=== PATIENT | male | born 1975 | race Caucasian/White ===

== ENCOUNTER 2017-05-19 12:53 | Inpatient (IN) | payer BC, OTHER ==
[~2017-05-19] VITALS: Ht 188 cm; Wt 88.5 kg
--- NOTE | 2017-05-19 22:15 | NUR ---
Pre-Assessment: Pt seen in intake office. Pt reported using Heroin, Xanax, and occasional Methamphetamines. Pt noted with moderate intoxication. Pt stated he has previous adverse reaction to Subutex, primary MD, Dr. Izquierdo made aware. Pt stated that he is here for detox. BP: 139/95, HR:94, T:97.8, RR:18 SpO2: 98%, Pain: 4/10. Explained rules and regulations of the unit. Pt verbalized understanding. Will further assess pt on the unit.
[2017-05-19 22:30] VITALS: BP 139/95
--- NOTE | 2017-05-19 22:35 | NUR ---
Admission Note: Pt admitted to [facility] at 2228. Pt is a 42M, AOx4 without s/s of acute distress noted. Height 62, Weight 195 lbs. Pt noted with adverse reaction to Subutex. Pt reports feelings of severe nausea when taking Subutex and refuses to receive it on the unit. Pt has a Primary Care Physician: Ashu Nazario Pt to be admitted under the care of Dr. Izquierdo. Pt reported with current substance use: 1. Heroin Pt uses 1.5-2g via smoking daily for the past 35 years. Pt last used around 2g Heroin 6 hours prior to admission. Pt stated that he used to take Heroin intravenously but started smoking he couldnt find any more veins. 2. Xanax Pt uses 3-4mg PO daily for the past 6 months. Pt last used 4mg of Xanax on 05/17/17. 3. Methamphetamines Pt uses an unknown amount of Methamphetamines occasionally. Pt stated that he doesnt remember how much he uses but only takes them whenever available. COWS 7 and CIWA 8 upon assessment. Vital signs taken from intake office: BP: 139/95, HR:94, T:97.8, RR:18 SpO2: 98%, Pain: 4/10. Pt noted with crackles on upper lobes during auscultation although breathing was even and unlabored. Pt reports generalized body pain but mostly focused on R upper leg r/t previous IO access. Bowel sounds were hypoactive x4 quadrants. Pt stated he follows a regular diet home but has decreased appetite. Pt noted with multiple scabs on R arm, L shoulder, and R upper leg r/t IO access. No bleeding or exudates noted. Pictures taken and placed on chart. Pt reported that he was recently in [facility] ER for an opiate overdose 3 days ago (05/16/17). Pt reported tolerating smoking Heroin but he had a friend that gave him IV access on his neck. Pt overdosed from IV Heroin and was rushed to [facility]. Pt reported "flatlining" asystole during the incident and was resuscitated. Due to lack of veins, an IO access was inserted on his R tibia. After pt regained consciousness, pt left AMA with the IO access still intact. On 05/18/17, pt went to [facility] to get the IO access removed. Pt stated that while at the ER, he received report that he might have a left lung cavity. He also stated that he might also have kidney stones. Pt did not bring any discharge paperwork or medical records with him from the admission. Pt stated that he has a history of benzodiazepine withdrawal-induced seizure 4 years ago. Pt stated he also has mild hypertension as HTN runs in his family. Pt denies any suicidal ideation at this time. Pt stated that he was previously admitted to [facility] in [place] in 2010. Pt has also been sent to half-way for possession of controlled substances. Most recent half-way time was 1 year ago which lasted for 3 days. Pt did not bring any home medications but stated that he is currently taking 500mg Keflex BID for infection r/t IO access. Pt refused PNA and Flu vaccines. Pt stated that he might get sick if he received the vaccines. Educated pt about current plan of care and verbalized support for pt. Encouraged pt to verbalize feelings. Bed in lowest position. Side rails up x2. Bed padded for safety. All needs attended and met. Call light functioning and within reach. Will continue to monitor. Addendum: 05/20/17 at 0414 by MADDY MILLER RN Correction: Pt has been using Heroin since 34 years old (Not for 35 years).
[2017-05-19 22:47] LABS: *AMPHETAMINE, URINE POSITIVE (NEGATIVE); *BARBITURATE, URINE NEGATIVE (NEGATIVE); *CANNABINOID, URINE NEGATIVE (NEGATIVE); *COCCAINE, URINE NEGATIVE (NEGATIVE); *OPIATE, URINE POSITIVE (NEGATIVE); *PHENCYCLIDINE SCREEN,URINE NEGATIVE (NEGATIVE)
[2017-05-19] MEDS ORDERED: MIRALAX 17 GM POWD.PACK PO PRN (23:45)
[2017-05-19] MEDS ORDERED: CLONIDINE HCL 0.1 MG TABLET PO PRN (23:45)
[2017-05-19] MEDS ORDERED: LORAZEPAM 2 MG/1 ML VIAL IM PRN (23:45)
[2017-05-19] MEDS ORDERED: NICOTINE 14 MG/24HR PATCH TD PRN (23:45)
[2017-05-19] MEDS ORDERED: LORAZEPAM 1 MG TABLET PO PRN ×2 (23:45)
[2017-05-19] MEDS ORDERED: LOPERAMIDE HCL 2 MG CAPSULE PO PRN ×2 (23:45)
[2017-05-19] MEDS ORDERED: ONDANSETRON ODT 4 MG TAB.RAPDIS SL PRN (23:45)
[2017-05-19] MEDS ORDERED: diphenhydrAMINE 50 MG CAPSULE PO PRN (23:45)
[2017-05-19] MEDS ORDERED: KETOROLAC TROMETHAMINE 30 MG INJ IM PRN (23:45)
[2017-05-19] MEDS ORDERED: METHOCARBAMOL 750 MG TABLET PO PRN (23:45)
[2017-05-19] MEDS ORDERED: HYDROXYZINE PAMOATE 25 MG CAPSULE PO PRN (23:45)
[2017-05-19] MEDS ORDERED: DICYCLOMINE HCL 20 MG TABLET PO PRN (23:45)
[2017-05-19] MEDS ORDERED: ONDANSETRON 4 MG/2 ML VIAL IM PRN (23:45)
[2017-05-19] MEDS ORDERED: IBUPROFEN 600 MG TABLET PO PRN (23:45)
[2017-05-19] MEDS ORDERED: MAG HYDROX/AL HYDROX/SIMETH 30 ML LIQUID UDC PO PRN (23:45)
[2017-05-20] VITALS: BP 115/73
--- NOTE | 2017-05-20 | NUR ---
MD and Tax Technician Communication: Clarified with Dr. Izquierdo about pt transfer to [place] to r/o TB in negative pressure isolation room. MD clarified to transfer pt whenever possible. Called Tax Technician for contact with [place] admission. Transport [facility] gave ETA of 3-4 hours before transfer can be facilitated. Pt made aware of current plan of care and order for transfer. Pt stated that he doesn't think he has TB and would like to get some sleep. Awaiting contact with [facility].
--- NOTE | 2017-05-20 00:13 | NUR ---
Ativan, Clonidine, and Robaxin PRN: Pt c/o increasing withdrawal symptoms. Pt stated that he is anxious and starting to feel muscle aches. COWS 14 and CIWA 15. PRN 2mg Ativan, 0.1 Clonidine, 750mg Robaxin given as ordered. Will continue to monitor.
[2017-05-20] MEDS ORDERED: METHOCARBAMOL 750 MG TABLET ONE (00:19)
[2017-05-20] MEDS ORDERED: CLONIDINE HCL 0.1 MG TABLET ONE (00:19)
[2017-05-20] MEDS ORDERED: LORAZEPAM 1 MG TABLET ONE (00:20)
[2017-05-20] MEDS ORDERED: CEPH-570 PO (01:03)
--- NOTE | 2017-05-20 01:15 | NUR ---
Ativan, Clonidine, and Robaxin Reassessment: Pt stated that he feels a lot better after taking Ativan. Pt also reports less muscle aches. PRN Ativan, Clonidine, and Robaxin effective.
--- NOTE | 2017-05-20 01:40 | NUR ---
MD and Patient Communication: CXR resulted no acute disease. On-call MD, Dr. Blackwood, made aware of result. MD stated that CXR is not definitive of TB result and to go ahead with transfer. Reclarified pt with transfer order. Pt stated that if he gets transferred to [place], he would leave AMA. Pt stated that he knows about his condition and does not believe that he has TB. Dr. Blackwood made aware of pt refusal to transfer and desire to leave AMA. MD stated to defer transfer until the morning.
[2017-05-20 04:00] VITALS: BP 117/78
--- NOTE | 2017-05-20 07:09 | NUR ---
End of Shift Note: Pt is 42M, admitted for Opiate and Benzodiazepine Dependence on 05/19/17. Pt is full code, on regular diet, and on fall precaution. Pt noted with adverse reaction to Subutex. Pt reports hx of sz, HTN, and anxiety. Pt is currently on droplet isolation precaution for possible TB. Pt pending transfer to [facility] to a negative pressure room. Pt is currently on 5-day Ativan taper to manage withdrawal symptoms. Pt slept for 5 hours. Respirations even and unlabored. Last COWS was 2 and Last CIWA was 4 at 0400. Pt reported increasing withdrawal symptoms during admission. PRN Ativan, Clonidine, and Robaxin were given and were effective. Fall and Sz precautions observed. Bed in lowest position. Side rails up x2. Call light functioning and within reach. All needs attended and met. Will endorse to day shift nurse.
--- NOTE | 2017-05-20 07:10 | NUR ---
Start Of Shift Report received. Pt is a 42 male, admitted for Opiate and Benzodiazepine Dependence on 05/19/17. Pt is full code, regular diet, reports allergies to Subutex and on fall and seizure precaution. Pt reports Hx of seizures, HTN, and anxiety. Pt is currently on droplet isolation precaution for possible TB. Pt pending transfer to [place] to a negative pressure room. Pt is placed on 5-day Ativan taper to manage withdrawal symptoms. Pt has a healing abrasion on his right upper arm, and a scab on his left shoulder, pictures taken and placed in chart. Pts last COWS 2 and Last CIWA 4 taken at 0400. Pt received PRN Ativan, Clonidine, and Robaxin and were effective. Fluids encouraged to help facilitate detox process, all safety measures in place, Bed in lowest position. Side rails up x2. Call light functioning and within reach. All needs attended and met. Will continue to monitor and provide support.
[2017-05-20 08:00] VITALS: BP 129/86
[2017-05-20] MEDS ORDERED: TUBERCULIN,PURIF.PROT.DERIV. 5 TU/0.1 ML TEST ID ONE (09:00)
[2017-05-20] MEDS ORDERED: GABAPENTIN 300 MG CAPSULE PO SCH (09:00)
[2017-05-20] MEDS ORDERED: CEPHALEXIN MONOHYDRATE 500 MG CAPSULE PO SCH (09:00)
[2017-05-20] MEDS ORDERED: LORAZEPAM 1 MG TABLET PO SCH (09:00)
--- NOTE | 2017-05-20 09:40 | NUR ---
Medication withheld Pt did not received his morning dose of Ativan 2mg, d/t being too sedated, contacted notified and is aware no new orders given, will continue to monitor.
--- NOTE | 2017-05-20 10:45 | NUR ---
COMMUNICATION WITH JEFFERSON ADMIN Called [facility] nursing administration and gave report to Linda. Face sheet was faxed. Notified Dr. Blackwood to speak with Dr. Sommer for transfer of patient to rule out TB. Pt to be transferred to Emergency Department. Primary nurse to give [id number] report.
--- NOTE | 2017-05-20 11:13 | NUR ---
[facility] Called and spoke with Cornelia from med response, all pertinent information provided, ETA is 15-20 minutes. Trip number is #[id number]. educated patient about transfer, pt complies. Addendum: 05/20/17 at 1151 by HASMUKH SCHUMACHER RN [id number]
--- NOTE | 2017-05-20 11:15 | NUR ---
Report given Contacted [place] ED department and gave report to RODRIGO ANNE, all pertinent information given. will continue to monitor Pt until transfer.
--- NOTE | 2017-05-20 12:35 | NUR ---
PATIENT TRANSFERRED Patient transferred by ambulance with med response. Primary nurse gave report to EMT. All patient belongings and discharge packet given. Pt aware of situation and stated "if I wait in the ER for more than 15 minutes, I am going to walk out." Pt educated on risks of leaving AMA. V/S stable. Pt is being transported down accompanied by ANESTHESIOLOGIST AND CRITICAL CARE. MD aware of transport at this time.
[2017-05-21] MEDS ORDERED: LORAZEPAM 1 MG TABLET PO SCH (09:00)
[2017-05-21] MEDS ORDERED: CEPH-570 PO (11:58)
[2017-05-22] MEDS ORDERED: LORAZEPAM 1 MG TABLET PO SCH (09:00)
[2017-05-23] MEDS ORDERED: LORAZEPAM 1 MG TABLET PO SCH (09:00)
[2017-05-24] MEDS ORDERED: LORAZEPAM 1 MG TABLET PO SCH (09:00)
== END 2017-05-20 12:35 | disposition short-term general hospital (02) | DRG 897 ==
LOC: SRC 21:08
PROVIDERS: ADMIT Internal Medicine; ATTEND Internal Medicine
PROC: HZ2ZZZZ Detoxification Services for Substance Abuse Treatment (ICD-10-PCS; principal; 2017-05-19)
DX: F11.229 Opioid dependence with intoxication, unspecified (principal); Z86.74 Personal history of sudden cardiac arrest; R17 Unspecified jaundice; F15.10 Other stimulant abuse, uncomplicated; Z91.89 Other specified personal risk factors, not elsewhere classified; F17.210 Nicotine dependence, cigarettes, uncomplicated; R05 Cough; F41.9 Anxiety disorder, unspecified; F13.230 Sedative, hypnotic or anxiolytic dependence with withdrawal, uncomplicated; R91.8 Other nonspecific abnormal finding of lung field
CPT/HCPCS: 71010; 80307; 80324; 80346; 80361; A4663

== ENCOUNTER 2017-05-20 20:43 | Inpatient (IN) | payer BC, OTHER ==
[~2017-05-20] VITALS: Ht 188 cm; Wt 88.5 kg
[~2017-05-20 20:43] MED LIST: CEPH-570 PO
[2017-05-21] VITALS (7 sets, daily range): BP systolic 115–149; BP diastolic 69–95
--- NOTE | 2017-05-21 00:45 | NUR ---
Pre-Admission Patient was seen in intake office. Patient is noted to moderately intoxicated but stable at this time to continue with admission assessment. V/S noted as: 146/95, 96, 20, 97.9, 98%, 0/10. Policies on medication disposal explained and understood by patient. Will continue with admission process on unit.
--- NOTE | 2017-05-21 01:30 | NUR ---
Admission Patient is a 42 year old male from [facility], readmitted to [facility] to receive treatment for his Opiate and Benzo Dependence. Patient was escorted on to unit by male AIR TRAFFIC CONTROL OPERATOR where body check was rendered. Skin check rendered by CN with Skin noted with Left shoulder open scab, Right forearm large dry scab, and Right lower leg S/P IO site. Patient noted multiple scattered track cardona due to substance use. Patient was able to provide Urine drug screen upon arrival to unit. Patient verbalizes allergies to Buprenorphine and reports reaction of severe nausea and Shortness of breath. Patient is alert and oriented x4, noted to be very restless, verbalizing increased anxiety and agitation. Height noted as 62 and weight noted as 195lbs. Patient is ambulatory with no assistance needed. Breathing is even and non labored. Patient is noted with Crackles in right upper lobe and left upper lobe. No Shortness of Breath noted. No Cough noted. BUE and BLE noted to be WNL with no edema noted. Bowel sounds noted to be hypoactive in all 4 quadrants. Patient verbalizes of following a Regular diet. He wishes to be full code. Patient verbalizes past medical history as HTN, Anxiety, history of seizures due to Benzo withdrawal, history of Overdose 4 days prior to admission. Patient reported of recent admission to [facility] ER due to Overdose where IO access was placed to Right lower leg due to lack of IV access. Patient left [facility] ER AMA with IO site still intact. Patient then admitted to [facility] ER for removal of IO site. Patient was previous admitted on 05/20/17 to [facility]. Upon admission patient verbalized of previous X-ray of Cavity on left lung. Patient was placed on Isolation and transferred to [facility] for further evaluation. Upon readmission to [facility] 05/20/17, patient left AMA. Patient did not bring any home medications but stated that he is currently taking Keflex 500mg BID for infection R/T IO access. Patient denies any suicidal ideations. He describes his usage as: 1. Heroin, for the past 4 years, 2GM daily via inhalation, with last use prior to admission 05/20/17 using 0.25GM 2. Xanax, for the past 6 months, 4mg daily via PO, with last use noted 05/19/17 3. Methamphetamines, for the past 6 months, unknown amount used occasionally, last use noted 05/19/17. Patient explains "anxiety, nausea, vomiting, diarrhea, stomach cramps, hot and cold sweats, flu-like symptoms." Patient currently lives in [place] with his ex-girlfriend and works as a cable television technician. Admission COWS 7 and CIWA 17. Patient states I used Heroin about 3-4 hours ago but I haven't had a benzo in my system in about 24 hours. All information relayed to Dr. Blackwood with orders to place patient on Droplet Isolation, labs to be drawn, PRN medications available for increased signs and symptoms of withdrawal. Patient made aware of Isolation Precautions and verbalized understanding. All needs attended to promptly. Will continue plan of acre as ordered.
[2017-05-21 01:45] LABS: *AMPHETAMINE, URINE POSITIVE (NEGATIVE); *BARBITURATE, URINE NEGATIVE (NEGATIVE); *CANNABINOID, URINE NEGATIVE (NEGATIVE); *COCCAINE, URINE NEGATIVE (NEGATIVE); *OPIATE, URINE POSITIVE (NEGATIVE); *PHENCYCLIDINE SCREEN,URINE NEGATIVE (NEGATIVE)
[2017-05-21] MEDS ORDERED: LORAZEPAM 1 MG TABLET PO PRN ×2 (01:45)
[2017-05-21] MEDS ORDERED: MAG HYDROX/AL HYDROX/SIMETH 30 ML LIQUID UDC PO PRN (01:45)
[2017-05-21] MEDS ORDERED: LOPERAMIDE HCL 2 MG CAPSULE PO PRN ×2 (01:45)
[2017-05-21] MEDS ORDERED: diphenhydrAMINE 50 MG CAPSULE PO PRN (01:45)
[2017-05-21] MEDS ORDERED: CLONIDINE HCL 0.1 MG TABLET PO PRN (01:45)
[2017-05-21] MEDS ORDERED: LORAZEPAM 2 MG/1 ML VIAL IM PRN (01:45)
[2017-05-21] MEDS ORDERED: DICYCLOMINE HCL 20 MG TABLET PO PRN (01:45)
[2017-05-21] MEDS ORDERED: ONDANSETRON ODT 4 MG TAB.RAPDIS SL PRN (01:45)
[2017-05-21] MEDS ORDERED: METHOCARBAMOL 750 MG TABLET PO PRN (01:45)
[2017-05-21] MEDS ORDERED: MAGNESIUM HYDROXIDE 30 ML LIQUID UDC PO PRN (01:45)
[2017-05-21] MEDS ORDERED: IBUPROFEN 400 MG TABLET PO PRN (01:45)
[2017-05-21] MEDS ORDERED: ACETAMINOPHEN 325 MG TABLET PO PRN (01:45)
[2017-05-21] MEDS ORDERED: HYDROXYZINE PAMOATE 25 MG CAPSULE PO PRN (01:45)
--- NOTE | 2017-05-21 02:00 | NUR ---
PRN Medication Administration Patient verbalizing increased anxiety, agitation, and sensitivity to light. CIWA noted to be 17. PRN Clonidine and Ativan 2mg administered as per ordered. Will continue to monitor.
[2017-05-21] MEDS ORDERED: CLONIDINE HCL 0.1 MG TABLET ONE (02:03)
[2017-05-21] MEDS ORDERED: LORAZEPAM 1 MG TABLET ONE (02:03)
--- NOTE | 2017-05-21 03:00 | NUR ---
PRN Medication Reassessment Patient noted in bed watching TV. Patient verbalizes "I'm slowly falling asleep. The Ativan is helping me start to calm down enough to try and get some sleep." CIWA noted to be 10. PRN Ativan noted to be effective. Will continue to monitor.
[2017-05-21] MEDS ORDERED: NICOTINE 14 MG/24HR PATCH TD PRN (06:45)
[2017-05-21] MEDS ORDERED: KETOROLAC TROMETHAMINE 30 MG INJ IM PRN (06:45)
--- NOTE | 2017-05-21 07:05 | NUR ---
End of Shift Patient is in bed, awake, alert and verbally responsive. Breathing even and non labored. Patient is a 42 year old male admitted on 05/21/17 for Opiate and Benzo Dependence under the care of Dr. Blackwood. Patient was placed on PRN Medications for increased signs and symptoms of disease process. Patient verbalizes allergies to Buprenorphine, wishes to be full code, following a regular diet, placed on fall and seizure precautions. Skin noted with right forearm large dry scab, left shoulder open scab, and right lower leg s/p IO site. Patients past medical history verbalized as Anxiety, HTN, History of seizure d/t benzo withdrawal, history of Overdose 05/16/17. Admission CIWA 17 and COWS 7 patient was given PRN Ativan 2mg. PRN Clonidine administered for agitation with mediations noted to minimize signs and symptoms of withdrawal. Patient was placed on Droplet Isolation precautions upon admission, as well as patio and room restriction until further orders to rule out possible TB. Upon admission patient verbalized understanding and noted to be compliant with orders. Patient was then noted requesting to smoke. Patient was explained of MD orders. Patient then noted to state I was cleared from the other hospital. They told me I did not have TB and allowed me to come back here. I just want to smoke. If I cannot smoke then I will just leave. CN made aware. made aware with no new orders. Patient remains in his room. All needs attended to promptly. Will endorse to continue plan of care as ordered.
--- NOTE | 2017-05-21 07:30 | NUR ---
Start of shift note; Received report from night nurse. Patient is a 42 year old male admitted on 05/21/17 for Opiate/Benzo dependence. Patient to evaluated by MD for treatment orders.Patient reported history of anxiety, HTN, seizures d/t benzo withdrawals. Patient has left shoulder scab and right forearm scab noted, right lower leg s/p IO access site. Patient was placed on isolation precautions, room restrictions and patio restrictions per Dr. Blackwood until further orders to rule out possible TB. Patient is high risk for AMA per endorsement. All safety measures secured. Will continue to monitor patient.
[2017-05-21] MEDS ORDERED: TUBERCULIN,PURIF.PROT.DERIV. 5 TU/0.1 ML TEST ID ONE (08:17)
[2017-05-21] MEDS: FOLIC ACID 1 MG TABLET PO SCH (08:40)
[2017-05-21] MEDS: MULTIVITAMINS,THERAPEUTIC TABLET PO SCH (08:40)
--- NOTE | 2017-05-21 10:30 | NUR ---
MD communication/nurse note; Notified MD regarding patient's refusal to any blood draw. Patient stated "i refuse to have any blood work done, i have been cleared by [facility] i don't understand why they need further testing when i was already cleared to come back here by [facility]". Educated patient regarding infection control and the importance of compliance to treatment. MD ordered AFB sputum cultures to be done by respiratory therapist. MD to evaluate patient during MD rounds. Will closely monitor patient.
--- NOTE | 2017-05-21 10:34 | NUR ---
Respiratory therapist; Respiratory therapist was notified regarding sputum culture that needs to be done. Will continue to monitor patient. Isolation precautions observed.
[2017-05-21] MEDS: LORAZEPAM 1 MG TABLET PO SCH ×4 (10:42→21:30)
--- NOTE | 2017-05-21 11:47 | NUR ---
Respiratory therapist and Radiology staff communication; Md ordered CXR (2 views) to R/O possible right upper lobe cavitary lesion. Radiologist came up on the unit to do the CXR, currently patient is refusing chest Xray, educated patient regarding the importance of compliance to MD orders, patient verbalize understanding. Radiologist will attempt to take CXR again in the afternoon. MD also ordered serial Sputum AFB X3 to be done specifically by respiratory therapist per MD. Respiratory department was notified and reminded of the need for the sputum culture to be done, RT staff agreed to come up and do the culture. Patient was educated regarding the importance of providing sputum for culture, patient verbalized understanding. Will continue to monitor patient.
[2017-05-21] MEDS ORDERED: CEPH-570 PO (11:58)
[2017-05-21] MEDS ORDERED: ALBUTEROL SULFATE 2.5 MG/3 ML NEBU NEB PRN (12:15)
[2017-05-21] MEDS ORDERED: SODIUM CHLORIDE 3% FOR INHALATION 15 ML NEBU IH ONE (12:15)
--- NOTE | 2017-05-21 13:33 | NUR ---
Sputum Culture: Sputum culture was collected by respiratory therapist as per MD order. Patient is AOX4,all safety measures secured.
[2017-05-21] MEDS ORDERED: DICYCLOMINE HCL 10 MG CAPSULE PO PRN (15:26)
[2017-05-21] MEDS: CEPHALEXIN MONOHYDRATE 500 MG CAPSULE PO SCH (16:24)
--- NOTE | 2017-05-21 17:04 | NUR ---
Chest XR result; Chest XR results noted. The lungs are clear. No focal opacification is seen. There is no pleural effusion or pneumothorax. The cardiomediastinal silhouette is unremarkable. The osseous structures are unremarkable. MD notified.
--- NOTE | 2017-05-21 17:58 | NUR ---
End of shift note; Patient is AOX4. Patient is a 42 year old male admitted on 05/21/17 for Opiate/Benzo dependence. Patient to evaluated by MD for treatment orders.Patient reported history of anxiety, HTN, seizures d/t benzo withdrawals. Patient has left shoulder scab and right forearm scab noted, right lower leg s/p IO access site. Patient was placed on isolation precautions, room restrictions and patio restrictions per Dr. Blackwood. Patient refused blood draw, MD was notified. Sputum culture was done with pending results, CXR resulted and was relayed to MD. Patient's last COWS is 4 and last CIWA is 5 at 1600. Patient remained compliant with medication regime. Isolation precautions observed. All safety measures secured. Met all needs.
--- NOTE | 2017-05-21 19:30 | NUR ---
START OF SHIFT Patient is a 42 year old male admitted on 05/21/17 for Opiate/Benzo dependency. Pt is A/O X 4. PMH of anxiety, HTN, seizures d/t benzo withdrawals. Patient has left shoulder scab and right forearm scab noted, right lower leg s/p IO access site. Allergic to Buprenorphine,on regular diet and full code status.Patient was placed on droplet isolation, room restrictions and patio restrictions per Dr. Blackwood to rule out TB. Patient refused blood draw, MD is aware. Sputum culture was done with pending results, CXR results relayed to MD. Patient's last COWS is 4 and last CIWA is 5 at 1600. Patient is compliant with medication regime. Isolation precautions observed. All safety measures in place per hospital policy,call light within reach,will continue to monitor.
--- NOTE | 2017-05-21 21:30 | NUR ---
MED REFUSAL Pt refused HS dose of Ativan 2 mg PO. notified.
[2017-05-22] VITALS: BP 130/85
[2017-05-22] MEDS ORDERED: LORAZEPAM 1 MG TABLET PO ONE ×2 (00:45→11:30)
--- NOTE | 2017-05-22 00:45 | NUR ---
RN note Ativan one-time Pt requested for his Ativan 2 mg PO scheduled for 2100. He initially refused this scheduled medication. Dr. Blackwood notified. ordered Ativan 2 mg PO one-time. Primary RN to administered medication.
--- NOTE | 2017-05-22 00:48 | NUR ---
ONE TIME DOSE OF ATIVAN 2 MG PO GIVEN ORDERED.
[2017-05-22] MEDS: ONDANSETRON 4 MG/2 ML VIAL IM PRN ×2 (03:48→10:22)
--- NOTE | 2017-05-22 03:48 | NUR ---
PRN ZOFRAN IM GIVEN ORDERED FOR N/V.WILL MONITOR.
[2017-05-22 04:00] VITALS: BP 115/79
--- NOTE | 2017-05-22 04:00 | NUR ---
COWS/CIWA DEFERRED D/T PT BEING ASLEEP.
--- NOTE | 2017-05-22 04:18 | NUR ---
PRN ZOFRAN IS EFFECTIVE.PT IS RESTING IN BED WITH EYES CLOSED,APPEARS TO BE FAST ASLEEP.
--- NOTE | 2017-05-22 06:34 | NUR ---
END OF SHIFT Patient is a 42 year old male admitted on 05/21/17 for Opiate/Benzo dependency. Pt is A/O X 4. PMH of anxiety, HTN, seizures d/t benzo withdrawals. Patient has left shoulder scab and right forearm scab noted, right lower leg s/p IO access site. Allergic to Buprenorphine,on regular diet and full code status.Patient was placed on droplet isolation, room restrictions and patio restrictions per Dr. Blackwood to rule out TB. Patient refused blood draw, MD is aware. Sputum culture was done with pending results, CXR result negative, relayed to MD. Patient's last COWS is 4 and last CIWA is 5 at 1600.PRN Zofran was given for N/V x 1 and was effective.Pt slept 8 hrs,fluid intake was 1000 mls,voided x 2. Patient is compliant with medication regime. Isolation precautions observed. All safety measures in place per hospital policy,call light within reach,will continue to monitor.
[2017-05-22 08:00] VITALS: BP 120/69
--- NOTE | 2017-05-22 08:00 | NUR ---
START OF SHIFT NOTE 42 year old male, admitted for Heroin, Xanax and meth substance use disorder. On airborne isolation for rule out TB. History of anxiety, HTN, history of seizure due to benzo withdrawal, history of OD 4 days prior to admission on 05/16/17. Allergy to Subutex. Full code. Fall and seizure precautions. Received report from night RN. Pt had emesis x 1 last night, received Zofran IM at 0400. 0800 nursing rounds, Pt refusing blood draw, RN will notify MD. Bed in low position and locked, side rails up x 2, call gaona within reach. Will continue to monitor.
[2017-05-22] MEDS: MULTIVITAMINS,THERAPEUTIC TABLET PO SCH ×3 (08:48→09:29)
[2017-05-22] MEDS: CEPHALEXIN MONOHYDRATE 500 MG CAPSULE PO SCH ×4 (08:48→17:50)
[2017-05-22] MEDS: LORAZEPAM 1 MG TABLET PO SCH ×4 (08:49→14:30)
[2017-05-22] MEDS: FOLIC ACID 1 MG TABLET PO SCH ×3 (08:49→09:29)
--- NOTE | 2017-05-22 09:37 | NUR ---
EMESIS Pt given am meds. Approximately one minute later Pt had emesis. Unable to administer IM Zofran until 1000. RN notified MD of emesis and unable to retain PO medication.
--- NOTE | 2017-05-22 10:22 | NUR ---
PRN MEDICATION ADMINISTRATION Zofran IM given due to emesis x 1. Will reassess.
--- NOTE | 2017-05-22 10:52 | NUR ---
PRN MEDICATION REASSESSMENT Pt denies further emesis. States nausea improved. Able to retain small amount of ice chips and fluid.
[2017-05-22] MEDS ORDERED: IV NS 1000 ML 1,000 ML IV PRN (11:30)
[2017-05-22] MEDS ORDERED: ONDANSETRON 4 MG/2 ML VIAL IV PRN (11:30)
[2017-05-22 12:30] VITALS: BP 128/65
--- NOTE | 2017-05-22 12:53 | NUR ---
COWS AND CIWA DEFERRED Pt sleeping. COWS AND CIWA deferred at this time. Pt with regular and unlabored respirations. RN had asked Pt for sputum sample one hour prior but pt has not yet provided sample. RN will follow up with obtaining sample.
--- NOTE | 2017-05-22 14:17 | NUR ---
UNABLE TO PLACE IV OCCUPATIONAL THERAPY PROGRAM DIRECTOR unable to place IV access. Also, pt attempted to give sputum sample but had emesis when trying to cough. Voice message left for Dr. Izquierdo regarding IV access and sputum specimen.
[2017-05-22 17:00] VITALS: BP 130/94
--- NOTE | 2017-05-22 17:30 | NUR ---
ONE TIME ATIVAN ORDER Pt refused 1500 dose of Ativan. At 1730, pt stating he would take the Ativan now. RN spoke to crusher plant operator. crusher plant operator spoke with Dr. Izquierdo and stated he would place a one time Ativan order for the patient. RN will administer as ordered.
--- NOTE | 2017-05-22 18:06 | NUR ---
PT LEAVING AMA Pt stating he would go smoke whether he was allowed or not. RN explained to Pt that he was not allowed to smoke because he was on isolation. Pt insisted he was going to smoke anyway. RN notified relief charge nurse. PCT Building Certifier Doyle spoke with patient. Pt told Doyle that he did not understand why he was on isolation as the last hospital he was at said he did not have TB. Doyle asked patient to give RN a moment to clarify isolation reason with MD. RN spoke with health data administrator who informed RN that per Dr. Izquierdo pt was on isolation as his last CXR showed a mass that could be TB. RN and Doyle spoke with patient and RN explained that last CXR showed a mass that could be TB and this was the reason for continued isolation. Patient stated he was going to leave that hospital. health data administrator notified. health data administrator spoke with Pt as well but patient continued to state he wanted to leave AMA. AMA form and Community Resources form signed by patient. Community Resources form given to patient and placed in belongings bag. Pt educated about the risks and consequences of leaving AMA, pt verbalized understanding but still requested to leave. Multiple staff members spoke with pt without any success. VS WNL. Pt denies suicidal/homicidal ideations. Dr. Izquierdo notified. All belongings returned to pt. Pt left facility at 1805 on 05/22/17. Pt escorted by PCT and was given and wearing N95 mask as he was leaving the unit and building.
[2017-05-23] MEDS ORDERED: LORAZEPAM 1 MG TABLET PO SCH (09:00)
[2017-05-24] MEDS ORDERED: LORAZEPAM 1 MG TABLET PO SCH (09:00)
[2017-05-25] MEDS ORDERED: LORAZEPAM 1 MG TABLET PO SCH (09:00)
== END 2017-05-22 18:05 | disposition left against medical advice (07) | DRG 894 ==
LOC: SRC 05-21 00:03
PROVIDERS: ADMIT Internal Medicine; ATTEND Internal Medicine
PROC: HZ2ZZZZ Detoxification Services for Substance Abuse Treatment (ICD-10-PCS; principal; 2017-05-21)
DX: F11.23 Opioid dependence with withdrawal (principal); F15.10 Other stimulant abuse, uncomplicated; F13.230 Sedative, hypnotic or anxiolytic dependence with withdrawal, uncomplicated; R17 Unspecified jaundice; R05 Cough; F17.210 Nicotine dependence, cigarettes, uncomplicated; Z86.74 Personal history of sudden cardiac arrest; F41.9 Anxiety disorder, unspecified; Z91.89 Other specified personal risk factors, not elsewhere classified; F15.90 Other stimulant use, unspecified, uncomplicated
CPT/HCPCS: 71020; 80307; 80324; 80346; 80361; 86580; 94640; 94664; A4663; J1885; J2405; J7030

== ENCOUNTER 2017-09-03 18:41 | Inpatient (IN) | payer BC, OTHER ==
[~2017-09-03] VITALS: Ht 188 cm; Wt 95.3 kg
[2017-09-03] MEDS ORDERED: MAG HYDROX/AL HYDROX/SIMETH 30 ML LIQUID UDC PO PRN (21:30)
[2017-09-03] MEDS ORDERED: ONDANSETRON ODT 4 MG TAB.RAPDIS SL PRN (21:30)
[2017-09-03] MEDS ORDERED: MIRALAX 17 GM POWD.PACK PO PRN (21:30)
[2017-09-03] MEDS ORDERED: CLONIDINE HCL 0.1 MG TABLET PO PRN (21:30)
[2017-09-03] MEDS ORDERED: ONDANSETRON 4 MG/2 ML VIAL IM PRN (21:30)
[2017-09-03] MEDS ORDERED: MAGNESIUM HYDROXIDE 30 ML LIQUID UDC PO PRN (21:30)
[2017-09-03] MEDS ORDERED: ACETAMINOPHEN 325 MG TABLET PO PRN (21:30)
[2017-09-03] MEDS ORDERED: DICYCLOMINE HCL 20 MG TABLET PO PRN (21:30)
[2017-09-03] MEDS ORDERED: BUPRENORPHINE HCL 2 MG TAB.SUBL SL PRN (21:30)
[2017-09-03] MEDS ORDERED: LORAZEPAM 2 MG/1 ML VIAL IM PRN (21:30)
[2017-09-03] MEDS ORDERED: diphenhydrAMINE 50 MG CAPSULE PO PRN (21:30)
[2017-09-03] MEDS ORDERED: IBUPROFEN 600 MG TABLET PO PRN (21:30)
[2017-09-03] MEDS ORDERED: LOPERAMIDE HCL 2 MG CAPSULE PO PRN ×2 (21:30)
[2017-09-03] MEDS ORDERED: NICOTINE 14 MG/24HR PATCH TD PRN (22:00)
[2017-09-03] MEDS ORDERED: NICOTINE POLACRILEX 4 MG GUM-PK OF TEN BC PRN (22:00)
--- NOTE | 2017-09-03 22:00 | NUR ---
INTAKE NOTE Pre-assessment completed in intake office. Patient is a 42 year old male presented for Benzodiazepines (Xanax PO) and Opioid (Heroine smoke) dependence. Patient reports NKA. Patient is ambulatory, A&Ox4. VS: BP 162/91, HR 83, T 98.3, SPO2 97%, pain level "0/10". COWS 16. The patient presented with anxiety, agitation, nervousness, tremors, sweating, stomach pain, restlessness, and fatigue. Patient denies SI/HI. Upon initial assessment respirations unlabored and even. Patient denies SOB and chest pain. Patient educated on the admission process. Will continue with the admission when patient coming on the unit.
[2017-09-03 22:43] VITALS: BP 162/91
--- NOTE | 2017-09-03 22:43 | NUR ---
ADMISSION NOTE New patient is a 42 year old male admitted to [facility] on 09/03/2017 @2243 for Benzodiazepines and Opioid Dependence. Patient is ambulatory. Height: 62 inches; Weigh by standing scale: 210 lbs. Patient is alert and oriented x4. Patient reports NKA, is on Regular Diet, Full Code, is on Fall and Seizures Precautions. PMH: HTN, Anxiety, Depression, Seizures History, Overdose History in 04/2017. UDS test provided. Patient refused Blood Labs drawn. Doctor Virgil Izquierdo MD aware. Patient reports "has been recently in prison : 07/27/2017 to 08/25/2017". MRSA collected from nares and sent to Lab. COWS 16, CIWA 13: Patient presented with anxiety, agitation, nervousness, tremors, sweating, restlessness, Body aches, stomach cramps, and fatigue.VS: BP 162/91, HR 83, T 98.3, SPO2 97%, pain level "0/10". Respirations even and unlabored. Lung Sounds are clear throughout. Patient denies SOB, cough, and chest pain. Bowel sounds active in all four quadrants. Skin is warm and dry to touch. Right knee open abscess. Picture taken and placed in chart. BUE and BLE dry scabs noted. Patient has multiple scattered track cardona r/t to substance use. Patient was previous admitted to [facility] x2. Patient did not bring home medications. Patient denies SI/HI now. Substance Use History: 1. "Heroin smoking 1.5 grams every day during last 5 months. Last used 1,5 grams on 09/03/2017 @1900". 2. "Xanax PO 2 mg occasionally for the past 5 months. Last use 2 mg on 09/03/2017 @1900". Patient oriented to his room, Nurse Call Light, and Serenity Floor. Encouraged fluids as tolerated. Encouraged to attend activities groups. All needs met. Safety measures on place. Call light within reach, bed in lowest position and locked, padded rails up bilaterally rails up bilaterally. Will continue to monitor closely. Addendum: 09/04/17 at 0306 by BETTY SORTO RN Patient reports tobacco smoking every day 1/2 pack, or 10 cigarettes. Education s for smoking cessation provided to patient.
[2017-09-03] MEDS ORDERED: LORAZEPAM 1 MG TABLET PO SCH (23:00)
[2017-09-03 23:03] LABS: *AMPHETAMINE, URINE POSITIVE (NEGATIVE); *BARBITURATE, URINE NEGATIVE (NEGATIVE); *CANNABINOID, URINE NEGATIVE (NEGATIVE); *COCCAINE, URINE NEGATIVE (NEGATIVE); *OPIATE, URINE POSITIVE (NEGATIVE); *PHENCYCLIDINE SCREEN,URINE NEGATIVE (NEGATIVE)
[2017-09-04] VITALS: BP 134/91
[2017-09-04 04:00] VITALS: BP 141/83
--- NOTE | 2017-09-04 07:30 | NUR ---
START OF SHIFT PATIENT IS A 42 YR OLD MALE ADMITTED LAST NIGHT 09/03/17 TO [facility] FOR WITHDRAWAL FROM HEROIN. PATIENT IS IN BED ASLEEP BREATHING EVEN AND UNLABORED WITH 2 SIDE RAILS UP. PATIENT HAS NOT STARTED A TAPER YET BUT REQUIRED PRN ATIVAN ON PM SHIFT FOR WITHDRAWAL SYMPTOMS. LAST COWS 16 AND CIWA 11, WILL FOLLOW MD PLAN OF CARE
--- NOTE | 2017-09-04 07:35 | NUR ---
END OF SHIFT NOTE: Patient is a 42 year old male admitted on 09/03/2017 for Benzodiazepines (Xanax PO) and Opioid (Heroin smoking) dependence. Patient is on PRN Medications. Patient reports NKA, is on Regular Diet, Full Code, is on Fall and Seizures Precautions. PMH: HTN, Anxiety, Depression, Seizures History, Overdose History in 04/2017. Admission COWS 16, CIWA 11 @2243: Patient presented with anxiety, agitation, nervousness, tremors, sweating, restlessness, body aches, stomach cramps, and fatigue. Ativan 2mg 2 tab PO administrated as ordered. COWS 12, CIWA 9 @0000. Last COWS 13, CIWA 11 @0400. Patient c/o anxiety, agitation, nervousness, nausea, nasal stuffy, stomach cramps, sweating, tremors, and restlessness. VS @0400: T 97.7, BP 141/83, HR 80, RA SPO2 98%, body aches pain level "0/10". Respirations even and unlabored. Patient denies SOB, cough, and chest pain. Skin is warm and dry to touch. Patient's on right knee open abscess , and BUE and BLE dry scabs noted. Patient has multiple scattered track cardona r/t to substance use. Patient denies SI/HI. Patient encouraged to attend activities. Encouraged to increased oral fluids as tolerated. Patient slept 6 hours, intake 1,000 ml, urinated x2. All safety measures in the place: Call light within reach; bed locked and in the lowest position; padded rails up x 2. Patient endorsed to day shift nurse, report given.
[2017-09-04 08:00] VITALS: BP 149/93
[2017-09-04] MEDS ORDERED: TUBERCULIN,PURIF.PROT.DERIV. 5 TU/0.1 ML TEST ID ONE ×2 (09:00→12:45)
[2017-09-04] MEDS: LORAZEPAM 1 MG TABLET PO PRN ×4 (09:22→22:55)
--- NOTE | 2017-09-04 09:22 | NUR ---
PRN ATIVAN ATIVAN 2MG PO GIVEN FOR COWS 15 CIWA 13 WILL CONTINUE TO MONITOR
--- NOTE | 2017-09-04 10:22 | NUR ---
PRN REASSESS PT RESTING IN BED, STATES THAT ATIVAN HELPED HIS ANXIETY COWS 13 CIWA 10 WILL CONTINUE TO MONITOR AND OFFER HELP
[2017-09-04 12:00] VITALS: BP 123/79
[2017-09-04 12:33] LABS: BASOPHILS % (AUTO) 0.2 % (0.0-2.0); EOSINOPHILS # (AUTO) 0.2 K/uL (0.0-0.7); EOSINOPHILS % (AUTO) 2.5 % (0.0-7.0); HEMATOCRIT 28.8 % (36.7-47.1); HEMOGLOBIN 9.2 g/dL (12.5-16.3); LYMPHOCYTES # (AUTO) 1.5 K/uL (20.0-40.0); LYMPHOCYTES % (AUTO) 23.4 % (20.5-51.5); MEAN CORPUSCULAR HEMOGLOBIN 22.9 uug (23.8-33.4); MEAN CORPUSCULAR HGB CONC 32 g/dL (32.5-36.3); MEAN CORPUSCULAR VOLUME 71.7 fL (73.0-96.2); MONOCYTES # (AUTO) 0.7 K/uL (2.0-10.0); MONOCYTES % (AUTO) 10.6 % (0.0-11.0); NEUTROPHILS % (AUTO) 63.3 % (38.5-71.5); PLATELET COUNT (AUTO) 330 K/uL (152-348); RED BLOOD CELL COUNT(AUTO) 4.02 MIL/uL (4.06-5.63); WHITE BLOOD COUNT (AUTO) 6.3 K/uL (3.6-10.2)
[2017-09-04 12:40] LABS: ALANINE AMINOTRANSFERASE 13 U/L (16-63); ALKALINE PHOSPHATASE 77 U/L (50-136); ASPARTATE AMINOTRANSFERASE 18 U/L (15-37); BILIRUBIN,TOTAL 0.3 mg/dL (0.2-1.0); CARBON DIOXIDE 32 mmol/L (21-32); CHLORIDE 105 mmol/L (98-107); CREATININE 0.9 mg/dL (0.6-1.3); ETHANOL < 3 MG/DL (0-0); GLUCOSE 88 mg/dL (74-106); MAGNESIUM 1.9 mg/dL (1.8-2.4); TOTAL PROTEIN, SERUM 6.3 g/dL (6.4-8.2); UREA NITROGEN, BLOOD 9 mg/dL (7-18)
--- NOTE | 2017-09-04 12:45 | NUR ---
PPD PPD PLACED PER MD ORDER PLACED ON RIGHT FORE ARM
--- NOTE | 2017-09-04 12:51 | NUR ---
PRN ATIVAN 1MG PO ATIVAN GIVEN FOR ANXIETY AND CIWA 11 WILL CONTINUE TO REASSESS AND MONITOR
--- NOTE | 2017-09-04 13:50 | NUR ---
REASSESS PRN ATIVAN CIWA 9 PATIENT STATES HE FEELS LESS ANXIOUS AND ATIVAN HAS HELPED WITH HIS WITHDRAWALS. CONTINUE TO MONITOR
[2017-09-04] MEDS: METHOCARBAMOL 750 MG TABLET PO PRN (15:59)
[2017-09-04 16:00] VITALS: BP 126/72
--- NOTE | 2017-09-04 16:00 | NUR ---
PRN MEDS PRN ATIVAN 1MG GIVEN FOR CIWA 9 ROBAXIN 750MG PO AND BENTYL 20 MG PO GIVEN FOR COMPLAINTS OF BODY AND STOMACH PAIN, WILL REASSESS AND MONITOR
--- NOTE | 2017-09-04 17:00 | NUR ---
PRN REASSESS PATIENT STATES HE " FEELS OK BUT NOT READY TO START SUBUTEX YET " ROBAXIN EFFECTIVE FOR BODY ACHES AND ATIVAN EFFECTIVE FOR ANXIETY, CIWA 8, CONTINUE TO MONITOR
[2017-09-04] MEDS ORDERED: BUPRENORPHINE HCL 2 MG TAB.SUBL SL PRN (18:30)
--- NOTE | 2017-09-04 18:44 | NUR ---
END OF SHIFT: PATIENT IS A 42 YR OLD MALE WHO WAS ADMITTED INTO [facility] 09/03/17 FOR WITHDRAWAL FROM HEROIN AND BENZODIAZEPINES. PATIENT HAS SLEPT ON AND OFF MOST OFF THE DAY. PATIENT IS ON PRN MEDS ONLY AT THIS TIME, MEDS GIVEN : ATIVAN 2MG PO X2, ATIVAN 1 MG PO X1, ROBAXIN 750MG PO AND BENTYL 20MG PO. PATIENTS ARMS, HANDS AND LEGS ARE EDEMATOUS AND HE HAS AN ABSCESS ON HIS RIGHT KNEE. MRSA NARES SWAB SENT TO LAB PENDING RESULTS. PPD PLACED ON RIGHT FOREARM. LAST COWS 10 AND CIWA 9 @ 1600.FLUID INTAKE THIS SHIFT 75OML , 2 VOIDS AND [address] MCCONNELL WHEN PATIENT STARTS WITHDRAWALS AND HE WILL START TAPER.
--- NOTE | 2017-09-04 18:44 | NUR ---
START OF SHIFT NOTE Endorsed patient, 23 year old male, assessed in his room. He is resting in the bed. Patient is alert and oriented x4. Patient is sad, with poor eyes contact , and c/o " feelings of sad". Emotional support provided, and patient 's reassuring. Patient denied SI/HI. COWS 12, CIWA 11: Patient presented with anxiety, agitation, nervousness, tremors, sweating, restlessness, fatigue, and stomach pain. Respirations is unlabored and clear. Abdomen is soft. Bowel Sounds active in all four quadrants. Skin is warm, and moist to touch. Patient has abscess on Right Knee, Scabs on Bilateral Upper Extremities, and multiple Scabs on Bilateral Low Extremities noted. Patient denies SI/HI. Encouraged to attend group activities, to increasing oral fluids. Patient is on PRN medications. Patient remains compliant with treatment, medications, and diet regime per day shift nurse report. All safety measures in the place: Call light within reach, bed locked and in the lowest position, padded rails up x 2. Patient endorsed by day shift nurse, report received. Will continue to monitor closely.
[2017-09-04 20:00] VITALS: BP 144/89
--- NOTE | 2017-09-04 22:55 | NUR ---
PRN ATIVAN 2 MG ADMINISTERED FOR CIWA 14: PATIENT NOTED ANXIOUS AND AGITATED. ALL NEEDS MET. WILL REASSESS.
--- NOTE | 2017-09-04 23:55 | NUR ---
RE-ASSESSMENT Patient is sleeping. RR 14. Respirations even and unlabored. PRN Ativan 2 mg PO was effective. All needs met. Safety measures on place. Call light within reach, bed in lowest position and locked, padded rails up bilaterally. Will continue to monitor closely.
[2017-09-05] VITALS: BP 131/70
[2017-09-05 04:00] VITALS: BP 135/82
--- NOTE | 2017-09-05 06:38 | NUR ---
END OF SHIFT NOTE: Patient admitted for Benzodiazepines and Opioid withdrawal . Patient 's sad with poor eye contact. Patient is disheveled. Garbage seen around room. At beginning of the shift COWS =12, CIWA 11 @2000, COWS =14, CIWA=14 @2255: Patient noted anxious and agitated. During the shift, PRN Ativan 2 mg PO administrated for CIWA=14 ,as ordered. Patient presented with anxiety, agitation, nervousness, tremors, sweating, restlessness, body aches, stomach cramps, and fatigue throughout my shift. Ativan 2mg 2 tab PO administrated as ordered. During re-assessment in one hour patient slept, and patient woke up while VS's taken @0000, and used restroom. COWS, CIWA decreased to 9 @0000. Last COWS= 10, CIWA=10 @0400. During coding compliance manager patient c/o anxiety, agitation, nervousness, nasal stuffy, stomach cramps, sweating, tremors, and restlessness. Patient encouraged to attend activities. Encouraged to increased oral fluids as tolerated. Patient slept 7 hours, intake 1,694 ml, urinated x3. All safety measures in the place: Call light within reach; bed locked and in the lowest position; padded rails up x 2. Patient endorsed to day shift nurse, report given.
--- NOTE | 2017-09-05 07:10 | NUR ---
Start of Shift Notes: Received patient in his room. Awake, alert and verbally responsive. Oriented x 4. Patient is seen eating in bed while laying down. Patient was asked to elevated his HOB due to risk for aspiration. Patient states "No, I'm good. Can you just get me more oreo cookies, hersheys, diet coke and a bag of barbecue chips?" Patient was told that breakfast was coming in soon. Patient then stated "I don't want to wait for breakfast, just get me what I asked for." Patient's room was noted to have garbage all around the floor, hoarding food, with dirty linens and dirty clothes thrown on the floor with spilled drinks. Encouraged hygiene, cleanliness and order in his room. Patient is a 42 year old male admitted for BZO and opiate withdrawal who is on PRNs at this time. Educated patient on his current plan of care for the day and his medication regimen. Encouraged oral fluid intake and encouraged group participation to learn new skills to prevent relapse. Will continue to monitor closely.
[2017-09-05 08:00] VITALS: BP 136/85
[2017-09-05 08:06] LABS: HEPATITIS B SURFACE AG Negative (Negative)
[2017-09-05] MEDS: LORAZEPAM 1 MG TABLET PO PRN (08:52)
[2017-09-05] MEDS: METHOCARBAMOL 750 MG TABLET PO PRN (08:52)
--- NOTE | 2017-09-05 08:52 | NUR ---
Ativan 1 mg PO/Robaxin 750 mg PO given: Patient noted with COWS 11/CIWA 12, presented with anxiety and agitation m/b restlessness. Constant shifting from one body position to another. Noted with facial flushing. Complains of 5/10 myalgia. Non-pharmacological interventions provided but ineffective. Medicated patient with Ativan 1 mg PO and Robaxin 750 mg PO as ordered. Will monitor for effectiveness.
[2017-09-05] MEDS ORDERED: HYDROXYZINE PAMOATE 25 MG CAPSULE PO PRN (09:00)
--- NOTE | 2017-09-05 09:52 | NUR ---
Re-assessment: Ativan/Robaxin COWS 6/CIWA 4, Less anxiety, less restlessness and less agitation noted. Patient is barely sweating at this time. Laying in bed and watching TV. States that PL is now 2/10. PRN Robaxin and Ativan were effective in reducing patient's myalgia and withdrawal symptoms.
[2017-09-05] MEDS ORDERED: LORAZEPAM 1 MG TABLET PO PRN ×2 (11:15)
[2017-09-05 12:00] VITALS: BP 137/82
[2017-09-05] MEDS: GABAPENTIN 300 MG CAPSULE PO SCH ×2 (14:00→21:50)
[2017-09-05 16:00] VITALS: BP 133/80
--- NOTE | 2017-09-05 19:01 | NUR ---
End of Shift Notes: Patient is currently on PRNs to manage symptoms related to BZO/opiate withdrawal. VS monitored closely. No significant abnormalities noted. Withdrawal symptoms were closely monitored. Initial COWS 11/CIWA 12, patient presented with myalgia, tremors, anxiety, agitation, restlessness, chills and hot flashes and also facial flushing. Medicated patient with Ativan 1 mg PO and Robaxin 750 mg PO at 0852 with help after 1 hour. Last COWS 5/CIWA 4. Requires encouragement to attend group and activities due to self isolation. Patient stayed in room and in his bed eating for most of the shift. Encouraged healthy diet regimen. All needs met and attended. Will continue to monitor closely.
--- NOTE | 2017-09-05 19:01 | NUR ---
START OF SHIFT NOTE: 42 year old male admitted for Benzodiazepines/Xanax, and Opioid/Heroin withdrawal. Patient resting in the bed most of the time. Hoarding food and spilled drinks noted around the room. Patient appears unwashed/uncombed hair. Patient is sad, with poor eyes contact. Patient 's c/o "feelings of low self- esteem, increased anxiety, depression, and irritability". Emotional support provided, and patient 's reassuring. Patient is alert and oriented x4. Last COWS 5, CIWA 14 @1600. Patient presented with anxiety, agitation, nervousness, tremors, sweating, restlessness, fatigue, and stomach pain. Encouraged to attend group activities, to increasing oral fluids. PRN Ativan 1 mg PO and Robaxin 750 mg PO administrated by day shift nurse @0852 were effective as day shift nurse reported. Patient remains compliant with treatment, medications, and diet regime per day shift nurse report. Patient's scheduled for discharging tomorrow, on 09/06/2017 at 0930. All safety measures in the place: Call light within reach, bed locked and in the lowest position, padded rails up x 2 Endorsement received from day shift nurse. Will continue to monitor closely.
[2017-09-05 20:00] VITALS: BP 147/86
[2017-09-05] MEDS ORDERED: HYDR-3895 PO (21:59)
[2017-09-05] MEDS ORDERED: DIPH50CA37 PO (21:59)
[2017-09-05] MEDS ORDERED: GABA-534 PO (21:59)
[2017-09-05] MEDS ORDERED: METH-406 PO (21:59)
[2017-09-05] MEDS ORDERED: DICY20TA28 PO (21:59)
[2017-09-05] MEDS ORDERED: CLON0.1T14 PO (21:59)
[2017-09-05] MEDS ORDERED: IBUP-1955 PO (21:59)
--- NOTE | 2017-09-06 | NUR ---
VS REFUSED. COWS,CIWA DEFERRED. PATIENT IS SLEEPING. SAFETY MEASURES IN PLACE. WILL CONTINUE TO MONITOR.
--- NOTE | 2017-09-06 04:00 | NUR ---
VS REFUSED. COWS,CIWA DEFERRED. PATIENT IS SLEEPING. SAFETY MEASURES IN PLACE. WILL CONTINUE TO MONITOR.
--- NOTE | 2017-09-06 06:55 | NUR ---
END OF SHIFT NOTE: A 42 year old male is admitted for Benzodiazepines (Xanax) and Opioid(Heroin) withdrawal. Patient's PRN Medications only, no taper ordered. Patient remains compliant with treatment, medications, and diet regime. The patient is disheveled. His clothes are dirty, and patient refused to change them. The patient was educated in safety and hygiene care. The patient was encouraged to independently perform hygiene care. Patient slept most of the time throughout my shift. COWS=9, CIWA=9 @2000. COWS, CIWA was deferred @0000 and @0400. Patient was sleeping. Patient presented with anxiety and agitation, c/o restlessness, fatigue, abdominal cramps, sweating, and tremors. No PRN Medications given during shift. Calm and safety environment with minimized noises was provided. Patient slept for a total of 9 hours, intake 700 ml, voided x2. Patient scheduled for discharge today. Calm environment and minimized noises was provided. All needs met. Safety measures in the place: Call light within reach, bed in the lowest position and locked, padded rails up x2. Patient endorsed to day shift nurse.
--- NOTE | 2017-09-06 07:47 | NUR ---
START OF SHIFT NOTE: Received report from shift nurse manager nurse. 42 year old male admitted for Benzodiazepines/Xanax, and Opioid/Heroin withdrawal. Received resting in bed in no acute distress. Alert and oriented X4. Color pasty, skin warm and dry. Respirations even and unlabored. To be discharged this AM. Safety precautions observed. Call light within reach.
[2017-09-06] MEDS: GABAPENTIN 300 MG CAPSULE PO SCH (08:29)
--- NOTE | 2017-09-06 08:33 | NUR ---
VSS Pt refused Gabapentin. Signed discharge papers. No home meds.
[2017-09-06 08:35] VITALS: BP 133/76
--- NOTE | 2017-09-06 09:36 | NUR ---
Pt discharged in stable condition with all valuable and belongings. No home meds. Pt to [facility] via [facility] [facility] private car. Pt denies SI/HI
== END 2017-09-06 09:36 | disposition other institution (70) | DRG 895 ==
LOC: SRC 21:09
PROVIDERS: ADMIT Internal Medicine; ATTEND Internal Medicine
PROC: HZ2ZZZZ Detoxification Services for Substance Abuse Treatment (ICD-10-PCS; principal; 2017-09-03)
PROC: HZ51ZZZ Individual Psychotherapy for Substance Abuse Treatment, Behavioral (ICD-10-PCS; 2017-09-05)
DX: F11.23 Opioid dependence with withdrawal (principal); Z86.74 Personal history of sudden cardiac arrest; I15.9 Secondary hypertension, unspecified; E88.09 Other disorders of plasma-protein metabolism, not elsewhere classified; D50.9 Iron deficiency anemia, unspecified; F41.0 Panic disorder [episodic paroxysmal anxiety]; F17.210 Nicotine dependence, cigarettes, uncomplicated; F13.239 Sedative, hypnotic or anxiolytic dependence with withdrawal, unspecified; L80 Vitiligo; Z91.89 Other specified personal risk factors, not elsewhere classified; F15.23 Other stimulant dependence with withdrawal; Z83.3 Family history of diabetes mellitus; Z81.3 Family history of other psychoactive substance abuse and dependence
CPT/HCPCS: 36415; 80307; 80324; 80346; 80361; 83735; 85025; 86580; 86592; 86705; 86803; 87340; 87806; A4663; G0480